=== PATIENT | male | born 1995 | race Caucasian/White ===

== ENCOUNTER 2018-05-25 15:36 | Emergency (ER) | payer BC ==
--- NOTE | 2018-05-25 16:27 | EDPHY ---
H & P Stated Complaint: Sent from for eval testicular pain x 5-6 days Time Seen by Provider: 05/25/18 16:01 HPI/ROS: CHIEF COMPLAINT: Right testicle pain HISTORY OF PRESENT ILLNESS: The patient is a 22-year-old man who comes to the emergency depart with his dad complaining of right testicular pain. He states that he is actually at the upper pole of his right testicle. He states that it feels like blood vessels. He denies any trauma. He has been sexually monogamous for over a year with the same partner. He states he is not concerned about STDs. No rectal intercourse. He has not had any discharge or erythema or swelling. No palpable hernia. It has been present for about 5 days. Severity: Moderate Modifying factors: None REVIEW OF SYSTEMS: Constitutional: denies: chills, fever, recent illness, recent injury EENTM: denies: blurred vision, double vision, nose congestion Respiratory: denies: cough, shortness of breath Cardiac: denies: chest pain, irregular heart rate, lightheadedness, palpitations Gastrointestinal/Abdominal: denies: abdominal pain, diarrhea, nausea, vomiting, blood streaked stools Genitourinary: See HPI Musculoskeletal: denies: joint pain, muscle pain Skin: denies: lesions, rash, jaundice, bruising Neurological: denies: headache, numbness, paresthesia, tingling, dizziness, weakness Hematologic/Lymphatic: denies: blood clots, easy bleeding, easy bruising Immunologic/allergic: denies: HIV/AIDS, transplant 10 systems reviewed and negative except as noted EXAM: GENERAL: Well-appearing, well-nourished and in no acute distress. HEAD: Atraumatic, normocephalic. EYES: Pupils equal round and reactive to light, extraocular movements intact, sclera anicteric, conjunctiva are normal. ENT: TMs normal, nares patent, oropharynx clear without exudates. Moist mucous membranes. NECK: Normal range of motion, supple without lymphadenopathy or JVD. LUNGS: Breath sounds clear to auscultation bilaterally and equal. No wheezes rales or rhonchi. HEART: Regular rate and rhythm without murmurs, rubs or gallops. ABDOMEN: Soft, nontender, normoactive bowel sounds. No guarding, no rebound. No masses appreciated. : Normal exam, normal cremasteric. No masses or tenderness. No obvious palpable cords. No palpable hernia. BACK: No CVA tenderness, no spinal tenderness, step-offs or deformities EXTREMITIES: Normal range of motion, no pitting or edema. No clubbing or cyanosis. NEUROLOGICAL: Cranial nerves II through XII grossly intact. Normal speech, normal gait. 5/5 strength, normal movement in all extremities, normal sensation , normal reflexes PSYCH: Normal mood, normal affect. SKIN: Warm, dry, normal turgor, no visible rashes or lesions. Source: Patient Exam Limitations: No limitations - Personal History Current Tetanus Diphtheria and Acellular Pertussis (TDAP): Yes - Medical/Surgical History Hx Asthma: No Hx Chronic Respiratory Disease: No Hx Diabetes: No Hx Cardiac Disease: No Hx Renal Disease: No Hx Cirrhosis: No Hx Alcoholism: No Other PMH: healthy - Family History Significant Family History: No pertinent family hx - Social History Smoking Status: Never smoked Alcohol Use: Sober Drug Use: None Constitutional: Initial Vital Signs Temperature (C) 36.8 C 05/25/18 15:37 Heart Rate 82 05/25/18 15:37 Respiratory Rate 18 05/25/18 15:37 Blood Pressure 131/56 H 05/25/18 15:37 O2 Sat (%) 99 05/25/18 15:37 O2 Delivery Mode Room Air Allergies/Adverse Reactions: No Known Allergies Allergy (Unverified 05/25/18 15:40) Home Medications: Medication Instructions Recorded levOFLOXACIN [levAQUIN (*)] 500 mg PO DAILY #10 tab 05/25/18 Medical Decision Making - Diagnostics Imaging Results: Imaging Impressions Testicular Ultrasound 05/25/18 16:12 Impression: 1. Normal testes. No evidence of torsion, mass, or orchitis. 2. Borderline bilateral varicoceles. Findings discussed with emergency department physician, Aubrey Sumner MD on May 25, 2018 at 5:20 p.m. Imaging: Discussed imaging studies w/ body recall instructor Radiologist ED Course/Re-evaluation: We discussed the patient's ultrasound results. He wishes to be treated with antibiotics. He does not suspect STD. I have sent cultures. We will call him if there concerning. I will start him on Levaquin for 10 days. We discussed concerns for tendon injuries etc. He will watch out for these. Differential Diagnosis: Partial list of the Differential diagnosis considered include but were not limited to; urinary tract infection, epididymitis, varicocele and although unlikely based on the history and physical exam, I also considered torsion, hernia. I discussed these differential diagnoses and the plan with the patient as well as the usual and expected course. The patient understands that the diagnosis is provisional and that in medicine we are not always correct and that further workup is often warranted. Usual and customary warnings were given. All of the patient's questions were answered. The patient was instructed to return to the emergency department should the symptoms at all worsen or return, otherwise to followup with the physician as we discussed. - Data Points Laboratory Results: 05/25/18 05/25/18 16:24 16:24 Urine Color PALE YELLOW Urine Appearance CLEAR Urine pH 6.0 (5.0-7.5) Ur Specific [place] 1.005 (1.002-1.030) Urine Protein NEGATIVE (NEGATIVE) Urine Ketones NEGATIVE (NEGATIVE) Urine Blood NEGATIVE (NEGATIVE) Urine Nitrate NEGATIVE (NEGATIVE) Urine Bilirubin NEGATIVE (NEGATIVE) Urine Urobilinogen NEGATIVE EU EU (0.2-1.0) Ur Leukocyte Esterase NEGATIVE (NEGATIVE) Urine RBC NONE SEEN /hpf /hpf (0-3) Urine WBC 1-3 /hpf /hpf (0-3) Ur Epithelial Cells TRACE /lpf /lpf (NONE-1+) Urine Mucus TRACE /lpf /lpf (NONE-1+) Urine Glucose NEGATIVE (NEGATIVE) C.trachomatis RNA (TMA) Pending N.gonorrhoeae RNA (TMA) Pending Medications Given: Discontinued Medications Levofloxacin (Levaquin) 500 mg PO EDNOW ONE PRN Reason: Protocol Stop: 05/25/18 17:26 Last Admin: 05/25/18 17:37 Dose: 500 mg Departure - Departure Disposition: Home, Routine, Self-Care Clinical Impression: Epididymitis, right Condition: Fair Instructions: Epididymitis (ED) Referrals: NONE *PRIMARY CARE P,. [Primary Care Provider] - As per Instructions Quique Moser MD [Medical Doctor] - 2-3 days, if not improved Prescriptions: levOFLOXACIN [levAQUIN (*)] 500 mg PO DAILY #10 tab
[2018-05-25 17:38] VITALS: BP 130/84
[2018-05-26 12:11] LABS: GC AMPLIFICATION GENPROBE NEGATIVE (NEGATIVE)
== END 2018-05-25 17:39 | disposition home or self-care (01) ==
DX: N45.1 Epididymitis (principal)